=== PATIENT | female | born 1985 | race Caucasian/White ===

== ENCOUNTER 2021-10-11 11:33 | Emergency (ER) | payer BC, MEDICAID ==
[~2021-10-11] VITALS: Ht 157.5 cm; Wt 79.8 kg
[2021-10-11 11:39] VITALS: BP 127/75
--- NOTE | 2021-10-11 12:51 | NUR ---
PT AMBULATED TO BED, STEADY GAIT
[2021-10-11 15:50] VITALS: BP 107/80
--- NOTE | 2021-10-11 15:52 | NUR ---
Patient discharged with v/s stable. Written and verbal after care instructions given and explained. Patient verbalized understanding. Ambulatory with steady gait. All questions addressed prior to discharge. Advised to follow up with PMD.
== END 2021-10-11 15:52 | disposition home or self-care (01) ==
LOC: MED 11:33
DX: N93.9 Abnormal uterine and vaginal bleeding, unspecified (principal)
CPT/HCPCS: 81002; 81025; 99282

== ENCOUNTER 2023-05-03 16:48 | Emergency (ER) | payer BC, MEDICAID ==
[~2023-05-03] VITALS: Ht 157.5 cm; Wt 74.8 kg
[2023-05-03 16:52] VITALS: BP 133/73; PULSE 73; RESP 14; TEMP 98.2; O2SAT 100
[2023-05-03] MEDS ORDERED: KETOROLAC 30 MG/ML VIAL IVP ONE (17:15)
[2023-05-03] MEDS ORDERED: NACL 0.9% 1,000 ML IV ONE (17:15)
[2023-05-03 17:21] VITALS: TEMP 98.2
[2023-05-03 17:26] LABS: APPEARANCE,URINE CLEAR (CLEAR); BILIRUBIN,URINE NEGATIVE (NEGATIVE); BLOOD, URINE NEGATIVE (NEGATIVE); COLOR,URINE YELLOW (YELLOW); LEUKOCYTE ESTERASE ,URINE TRACE (NEGATIVE); NITRITE, URINE NEGATIVE (NEGATIVE); PROTEIN,URINE NEGATIVE (NEGATIVE); UGLUCOSE NEGATIVE (NEGATIVE); UROBILINOGEN,URINE 0.2 EU/dL (0.2 - 1)
[2023-05-03 17:29] LABS: RBC,URINE 0-5 /HPF (0-5)
[2023-05-03 17:30] LABS: BACTERIA,URINE 10-30 (MOD) /HPF (None Seen)
[2023-05-03 17:48] LABS: BASOPHILS % (AUTO) 0.8 % (0.0-2.0); EOSINOPHILS # (AUTO) 0.1 K/uL (0-0.4); EOSINOPHILS % (AUTO) 1.4 % (0.0-4.0); HEMATOCRIT 36.2 % (36-48); HEMOGLOBIN 12.4 g/dL (12.0-16.0); LYMPHOCYTES # (AUTO) 1.1 K/uL (2.5-16.5); LYMPHOCYTES % (AUTO) 19.4 % (20.5-51.1); MEAN CORPUSCULAR HEMOGLOBIN 30 pg (27-31); MEAN CORPUSCULAR HGB CONC 34 g/dL (33-37); MEAN CORPUSCULAR VOLUME 86.7 fL (80-94); MONOCYTES # (AUTO) 1.1 K/uL (0.8-1.0); MONOCYTES % (AUTO) 18.3 % (1.7-9.3); NEUTROPHILS # (AUTO) 3.5 K/uL (1.8-7.7); NEUTROPHILS % (AUTO) 60.1 % (42.2-75.2); PLATELET COUNT (AUTO) 301 K/uL (140-450); RED BLOOD CELL COUNT(AUTO) 4.17 MIL/uL (4.20-5.40); RED CELL DISTRIBUTION WIDTH 14.3 % (11.6-13.7); WHITE BLOOD COUNT (AUTO) 5.9 K/uL (4.8-10.8)
[2023-05-03 18:10] LABS: ALBUMIN 3.4 g/dL (3.4-5.0); ANION GAP 12.1 (8-16); CALCIUM 8.7 mg/dL (8.5-10.1); CARBON DIOXIDE 25.2 mmol/L (21-32); CREATININE 0.9 mg/dL (0.6-1.3); POTASSIUM 3.3 mmol/L (3.5-5.1); TOTAL BILIRUBIN 0.4 mg/dL (0.0-1.0); TOTAL PROTEIN, SERUM 7.9 g/dL (6.4-8.2)
[2023-05-03] MEDS ORDERED: POTASSIUM CHLORIDE 10 MEQ TABER PO ONE (18:50)
[2023-05-03] MEDS ORDERED: cefTRIAXone 1,000 MG VIAL ONE (19:04)
[2023-05-03] MEDS ORDERED: HYDROcodone/APAP 5/325 MG 1 TAB TAB PO ONE (19:10)
[2023-05-03] MEDS ORDERED: CEPH-588 PO (19:23)
[2023-05-03 20:25] VITALS: BP 121/76; PULSE 76; RESP 16; O2SAT 98
== END 2023-05-03 20:25 | disposition home or self-care (01) ==
LOC: MED 16:48
DX: N39.0 Urinary tract infection, site not specified (principal); Z98.890 Other specified postprocedural states
CPT/HCPCS: 36415; 76705; 80053; 81001; 81025; 83690; 85025; 87086; 96361; 96365; 96375; 99285; J0696; J1885; J7030; Q0092